=== PATIENT | male | born 1950 | race Caucasian/White ===

== ENCOUNTER → 2023-02-03 | Outpatient (CLI) | payer MEDICARE ==
[~2023-02-03] MED LIST: GASTROGRAFIN SOLUTION 30ML As Ordered ONE; ISOVUE-370 76% 100ML VIAL As Ordered ONE
== END ==
LOC: M RAD 09:08
PROVIDERS: ATTEND Nurse Practitioner Family
DX: K80.80 Other cholelithiasis without obstruction (principal); K74.60 Unspecified cirrhosis of liver; K40.90 Unilateral inguinal hernia, without obstruction or gangrene, not specified as recurrent
CPT/HCPCS: 74177; Q9963; Q9967

== ENCOUNTER 2023-04-12 08:10 | Day surgery (SDC) | payer MEDICARE ==
[~2023-04-12] VITALS: Ht 180.3 cm; Wt 97.1 kg
[~2023-04-12 08:10] MED LIST changes: +ASPI81CH33 PO; +ATOR40TA75 PO; +CARB25TA9 PO; -GASTROGRAFIN SOLUTION 30ML As Ordered ONE; -ISOVUE-370 76% 100ML VIAL As Ordered ONE; +LOSA50TA28 PO; +LR 1,000 ML IV SCH; +VITMTA PO
[2023-04-12] MEDS ORDERED: CelecoXIB 400 MG CAP PO ONE (09:00)
[2023-04-12] MEDS ORDERED: ceFAZolin SOD 2 GM in IV 1 EA IV ONE (09:00)
[2023-04-12] MEDS ORDERED: LIDOCAINE 1% SDV 30ML VIAL As Ordered ONE (09:45)
[2023-04-12] MEDS ORDERED: fentaNYL 250 MCG/5 ML INJECTION As Ordered ONE ×2 (09:52→10:39)
[2023-04-12] MEDS ORDERED: propofoL 200 MG/20 ML VIAL As Ordered ONE (10:31)
[2023-04-12] MEDS ORDERED: VECURONIUM BROMIDE 10MG VIAL As Ordered ONE (10:31)
[2023-04-12] MEDS ORDERED: ONDANSETRON 4MG 2ML VIAL As Ordered ONE (10:31)
[2023-04-12] MEDS ORDERED: ACETAMINOPHEN 1000MG 100ML IV BAG As Ordered ONE (11:03)
[2023-04-12] MEDS ORDERED: LIDOCAINE 2% INJ 100 MG/5 ML SYRINGE As Ordered ONE (11:05)
[2023-04-12] MEDS ORDERED: SUGAMMADEX SODIUM 500 MG/5 ML VIAL (BRIDION) As Ordered ONE (11:33)
[2023-04-12] MEDS ORDERED: oxyCODONE 5MG TAB PO PRN (12:05)
[2023-04-12] MEDS ORDERED: HYDROMORPHONE HCL 0.5 MG/ 0.5 ML SYRINGE IV PRN (12:05)
[2023-04-12] MEDS ORDERED: ONDANSETRON 4MG 2ML VIAL IV PRN (12:05)
[2023-04-12] MEDS ORDERED: LR 1,000 ML IV SCH (12:05)
[2023-04-12] MEDS ORDERED: fentaNYL 100 MCG/2 ML INJECTION IV PRN (12:05)
[2023-04-12] MEDS ORDERED: NORCO, ANEXSIA 5/325MG TABLET (HYDROcodone/ACETAMINOPHEN) PO PRN ×2 (12:35)
[2023-04-12] MEDS ORDERED: KETOROLAC 30 MG/ML 1ML VIAL IV SCH (13:00)
[2023-04-12 14:50] VITALS: BP 161/83; TEMP 97.3; O2SAT 95
== END 2023-04-12 14:55 | disposition home or self-care (01) ==
LOC: M SDC 08:10
PROVIDERS: ATTEND Surgery
DX: K40.30 Unilateral inguinal hernia, with obstruction, without gangrene, not specified as recurrent (principal); D17.6 Benign lipomatous neoplasm of spermatic cord; I10 Essential (primary) hypertension; E11.9 Type 2 diabetes mellitus without complications; E78.00 Pure hypercholesterolemia, unspecified; G20.A1 Parkinson's disease without dyskinesia, without mention of fluctuations; R06.83 Snoring; Z79.899 Other long term (current) drug therapy; Z79.82 Long term (current) use of aspirin; Z88.8 Allergy status to other drugs, medicaments and biological substances
CPT/HCPCS: 49650; 64425; C1781; J0131; J0665; J1100; J1170; J1885; J2405; J3010; S2900

== ENCOUNTER 2023-10-12 06:20 | Day surgery (SDC) | payer MEDICARE ==
[~2023-10-12] VITALS: Ht 180.3 cm; Wt 97.5 kg
[~2023-10-12 06:20] MED LIST changes: -LR 1,000 ML IV SCH; +THERTAB52 PO
[2023-10-12] MEDS ORDERED: LR 1,000 ML IV SCH ×2 (06:25→09:05)
[2023-10-12] MEDS ORDERED: ASPI81CH33 PO (06:41)
[2023-10-12] MEDS: CelecoXIB 400 MG CAP PO ONE (06:54)
[2023-10-12] MEDS ORDERED: LIDOCAINE 2% 100MG/5ML SDV (FOR ANES.) As Ordered ONE (06:57)
[2023-10-12] MEDS ORDERED: ONDANSETRON 4MG 2ML VIAL As Ordered ONE (06:57)
[2023-10-12] MEDS ORDERED: propofoL 200 MG/20 ML VIAL As Ordered ONE (06:57)
[2023-10-12] MEDS ORDERED: ROCURONIUM BROMIDE 50MG/5ML VIAL As Ordered ONE (06:57)
[2023-10-12] MEDS ORDERED: SUGAMMADEX SODIUM 500 MG/5 ML VIAL (BRIDION) As Ordered ONE (06:57)
[2023-10-12] MEDS ORDERED: KETOROLAC 60MG 2ML VIAL As Ordered ONE (06:57)
[2023-10-12] MEDS ORDERED: fentaNYL 250 MCG/5 ML INJECTION As Ordered ONE (07:02)
[2023-10-12] MEDS ORDERED: MIDAZOLAM INJ 2MG/2ML VIAL As Ordered ONE (07:03)
[2023-10-12] MEDS: ceFAZolin SOD 2 GM in IV 1 EA IV ONE (07:43)
[2023-10-12] MEDS ORDERED: ACETAMINOPHEN 1000MG 100ML IV BAG As Ordered ONE (07:55)
[2023-10-12] MEDS: LIDOCAINE 1% SDV 30ML VIAL As Ordered ONE (09:00)
[2023-10-12] MEDS ORDERED: ONDANSETRON 4MG 2ML VIAL IV PRN (09:05)
[2023-10-12] MEDS ORDERED: fentaNYL 100 MCG/2 ML INJECTION IV PRN (09:05)
[2023-10-12] MEDS ORDERED: NORCO, ANEXSIA 5/325MG TABLET (HYDROcodone/ACETAMINOPHEN) PO PRN (09:30)
[2023-10-12] MEDS: oxyCODONE 5MG TAB PO PRN (09:32)
[2023-10-12] MEDS: HYDROMORPHONE HCL 0.5 MG/ 0.5 ML SYRINGE IV PRN (09:32)
[2023-10-12 10:30] VITALS: BP 129/67; TEMP 97; O2SAT 99
[2023-10-12] MEDS ORDERED: KETOROLAC 30 MG/ML 1ML VIAL IV SCH (15:00)
== END 2023-10-12 10:42 | disposition home or self-care (01) ==
LOC: M SDC 06:20
PROVIDERS: ATTEND Surgery
DX: K40.90 Unilateral inguinal hernia, without obstruction or gangrene, not specified as recurrent (principal); K41.30 Unilateral femoral hernia, with obstruction, without gangrene, not specified as recurrent; R06.83 Snoring; I10 Essential (primary) hypertension; E78.00 Pure hypercholesterolemia, unspecified; R73.03 Prediabetes; G20.C Parkinsonism, unspecified; J30.1 Allergic rhinitis due to pollen; Z88.8 Allergy status to other drugs, medicaments and biological substances; Z79.899 Other long term (current) drug therapy; Z79.82 Long term (current) use of aspirin
CPT/HCPCS: 49553; 49650; 64425; 93005; C1781; J0131; J0665; J0690; J1100; J1170; J1885; J2250; J2405; J3010; S2900

== ENCOUNTER → 2024-05-18 | Outpatient (REF) | payer MEDICARE | LOC: M SMT 12:06 | PROVIDERS: ATTEND Urology | DX: C61 Malignant neoplasm of prostate (principal); R97.20 Elevated prostate specific antigen [PSA]; Z79.82 Long term (current) use of aspirin; Z79.899 Other long term (current) drug therapy; Z88.8 Allergy status to other drugs, medicaments and biological substances ==

== ENCOUNTER → 2024-10-31 | Outpatient (CLI) | payer MEDICARE ==
[~2024-10-31] MED LIST changes: +COMPTAB7 PO; +EYECAP2 PO; +LYCO10CA3 PO; +PRED5TA PO; +ZYTI250T PO
== END ==
LOC: M ONCR 07:57
PROVIDERS: ATTEND General Practice
DX: C61 Malignant neoplasm of prostate (principal); Z79.82 Long term (current) use of aspirin; Z79.890 Hormone replacement therapy; Z79.899 Other long term (current) drug therapy; Z80.9 Family history of malignant neoplasm, unspecified; Z87.891 Personal history of nicotine dependence; Z88.8 Allergy status to other drugs, medicaments and biological substances

== ENCOUNTER 2024-11-13 13:53 | Outpatient (RCR) | payer MEDICARE | END 2024-11-22 | LOC: M ONCR 13:53 | PROVIDERS: ATTEND General Practice | DX: Z51.0 Encounter for antineoplastic radiation therapy (principal); C61 Malignant neoplasm of prostate ==

== ENCOUNTER 2024-12-21 10:36 | Outpatient (RCR) | payer MEDICARE ==
[~2024-12-21 10:36] MED LIST changes: -TAMS-18 PO
[2024-12-25] MEDS ORDERED: TAMS-18 PO (11:57)
== END 2024-12-23 ==
LOC: M ONCR 10:36
PROVIDERS: ATTEND General Practice
DX: Z51.0 Encounter for antineoplastic radiation therapy (principal); C61 Malignant neoplasm of prostate

== ENCOUNTER → 2024-12-21 | Outpatient (CLI) | payer MEDICARE ==
[~2024-12-21] MED LIST changes: +TAMS-18 PO
== END ==
LOC: M SOG 07:36
PROVIDERS: ATTEND Physician Assistant
DX: M79.671 Pain in right foot (principal); Z53.9 Procedure and treatment not carried out, unspecified reason

== ENCOUNTER 2025-01-03 10:47 | Outpatient (RCR) | payer MEDICARE ==
[~2025-01-03 10:47] MED LIST changes: +ALFU10TA23 PO; +TAMS-18 PO
== END 2025-01-22 ==
LOC: M ONCR 10:47
PROVIDERS: ATTEND General Practice
DX: Z51.0 Encounter for antineoplastic radiation therapy (principal); C61 Malignant neoplasm of prostate

== ENCOUNTER → 2025-03-26 | Outpatient (CLI) | payer MEDICARE, MEDICAID | LOC: M PLALAB 13:17 | PROVIDERS: ATTEND General Practice | DX: C61 Malignant neoplasm of prostate (principal) ==

== ENCOUNTER → 2025-04-04 | Outpatient (CLI) | payer MEDICARE | LOC: M ONCR 10:41 | PROVIDERS: ATTEND General Practice | DX: C61 Malignant neoplasm of prostate (principal); R30.0 Dysuria; Z79.52 Long term (current) use of systemic steroids; Z79.818 Long term (current) use of other agents affecting estrogen receptors and estrogen levels; Z79.899 Other long term (current) drug therapy; Z87.891 Personal history of nicotine dependence; Z88.8 Allergy status to other drugs, medicaments and biological substances; J30.89 Other allergic rhinitis ==